=== PATIENT | male | born 1980 | race Caucasian/White ===

== ENCOUNTER 2018-01-07 08:40 | Day surgery (SDC) | payer OTHER ==
[~2018-01-07] VITALS: Ht 180.3 cm; Wt 97.1 kg
[2018-01-07] VITALS (10 sets, daily range): BP systolic 108–137; BP diastolic 83–97
--- NOTE | 2018-01-07 06:56 | Pre-Procedure Note/Attestation ---
Pre-Procedure Note/Attestation Complete Prior to Procedure Planned Procedure: left Procedure Narrative: left knee scope, medial meniscectomy and subchondroplasty Indications for Procedure Pre-Operative Diagnosis: left knee medial meniscus tear, insufficiency fracture Attestation I attest that I discussed the nature of the procedure; its benefits; risks and complications; and alternatives (and the risks and benefits of such alternatives ), prior to the procedure, with the patient (or the patient's legal sales representative sales manager). I attest that, if there was a reasonable possibility of needing a blood transfusion, the patient (or the patient's legal sales representative sales manager) was given the [facility] standardized written summary, pursuant to the Ashvin Ayad Blood Safety Act ([place] Health and Safety Code # 1645, as amended). I attest that I re-evaluated the patient just prior to the surgery and that there has been no change in the patient's H&P, except as documented below: none Maciel Manjarrez MD Jan 07, 2018 06:56
[~2018-01-07 08:40] MED LIST: ceFAZolin sod 1 GM in D5W 110 ML IVP ONE; celeBREX 200mg Cap **SURGERY PATIENTS ONLY ORAL ONE; oxyCONTIN 20mg tab ORAL ONE
[2018-01-07] MEDS ORDERED: Ropivacaine 5mg/ml Vial 30ml INJ ONE (09:10)
[2018-01-07] MEDS ORDERED: Midazolam 2mg/2ml Inj ONE ×3 (09:26→10:13)
[2018-01-07] MEDS ORDERED: Dexamethasone 4mg/ml vial ONE (09:27)
[2018-01-07] MEDS ORDERED: Propofol 200mg/20ml IV ONE (09:27)
[2018-01-07] MEDS ORDERED: Alfentanil 2ml Inj ONE (09:27)
[2018-01-07] MEDS ORDERED: Sodium Chloride 10ml vial INJ ONE (09:27)
[2018-01-07] MEDS ORDERED: Lidocaine 1% MPF 10mg/ml 5ml ONE (09:27)
[2018-01-07] MEDS ORDERED: D5 1/2NS 1,000 ML IV SCH (09:30)
[2018-01-07] MEDS ORDERED: Norco 5mg/325mg tab ORAL PRN ×2 (09:30→11:00)
[2018-01-07] MEDS ORDERED: Tylenol #3 tab (300mg/30mg) ORAL PRN (09:30)
--- NOTE | 2018-01-07 09:38 | Anethesia Preoperative Eval ---
Anesthesia Pre-op PMH/ROS General Date of Evaluation: Jan 07, 2018 Time of Evaluation: 09:59 Anesthesiologist: Abiel ASA Score: ASA 2 Mallampati Score Class I : Soft palate, uvula, fauces, pillars visible Class II: Soft palate, uvula, fauces visible Class III: Soft palate, base of uvula visible Class IV: Only hard plate visible Mallampati Classification: Class II Surgeon: Loki Diagnosis: L Knee Pain Surgical Procedure: L Knee Arthroscopy, Chondroplasty Anesthesia History: none Family History: no anesthesia problems Allergies: Coded Allergies: No Known Allergies (Unverified , 01/03/18) Medications: see eMAR Past Medical History Cardiovascular: Reports: other - DVT Other: obesity - BMI 32 PSxH Narrative: R Knee Arthroscopy Anesthesia Pre-op Phys. Exam Physician Exam Constitutional: NAD Neurologic: CN 2-12 intact Cardiovascular: RRR Respiratory: CTA Gastrointestinal: S/NT/ND Airway Exam Mallampati Score: Class II MO: full ROM: limited Teeth: intact Anesthesia Pre-op A/P Risk Assessment & Plan Assessment: ASA 2 Plan: GA, BIS Status Change Before Surgery: No Pre-Antibiotics Dru Grams Ancef IV Given Within 1 Hr of Incision: Yes Time Given: 10:21 Jett Beebe MD Jan 07, 2018 09:38
--- NOTE | 2018-01-07 09:40 | Immediate Post-Op Evaluation ---
Immediate Post-Op Evalulation Immediate Post-Op Evalulation Procedure: L Knee Arthroscopy, Chondroplasty Date of Evaluation: Jan 07, 2018 Time of Evaluation: 11:57 IV Fluids: 800 LR Blood Products: 0 Estimated Blood Loss: 15 Urinary Output: 0 Blood Pressure Systolic: 137 Blood Pressure Diastolic: 92 Pulse Rate: 84 Respiratory Rate: 16 O2 Sat by Pulse Oximetry: 100 Temperature (Fahrenheit): 97.2 Pain Score (1-10): 2 Nausea: No Vomiting: No Complications 0 Patient Status: awake, reacts, patent, none Hydration Status: adequate Dru Grams Ancef IV Given Within 1 Hr of Incision: Yes Time Given: 10:21 Jett Beebe MD Jan 07, 2018 09:39
--- NOTE | 2018-01-07 09:40 | 48 Hour Post Anesthesia Eval ---
Post Anesthesia Evaluation Procedure: L Knee Arthroscopy, Chondroplasty Date of Evaluation: Jan 07, 2018 Time of Evaluation: 13:58 Blood Pressure Systolic: 122 0: 74 Pulse Rate: 81 Respiratory Rate: 18 Temperature (Fahrenheit): 98.2 O2 Sat by Pulse Oximetry: 100 Airway: patent Nausea: No Vomiting: No Pain Intensity: 2 Hydration Status: adequate Cardiopulmonary Status: Stable Mental Status/LOC: patient returned to baseline Follow-up Care/Observations: 0 Post-Anesthesia Complications: 0 Follow-up care needed: ready to discharge Jett Beebe MD Jan 07, 2018 09:40
[2018-01-07] MEDS ORDERED: oxyCONTIN 20mg tab ORAL ONE (09:44)
[2018-01-07] MEDS ORDERED: celeBREX 200mg Cap **SURGERY PATIENTS ONLY ORAL ONE (09:44)
[2018-01-07] MEDS ORDERED: LR 1000ml ONE (10:00)
[2018-01-07] MEDS ORDERED: NS Irrig 4000ml IRRIG ONE ×2 (10:00→10:57)
[2018-01-07] MEDS ORDERED: NKM (10:12)
[2018-01-07] MEDS ORDERED: ePHEDrine 50mg/ml Inj ONE (10:23)
[2018-01-07] MEDS ORDERED: fentaNYL 100 mcg/2 mL IV ONE (10:57)
[2018-01-07] MEDS ORDERED: LR 1000ml 1,000 ML IVLG SCH (10:59)
[2018-01-07] MEDS ORDERED: Hydromorphone 0.5mg/0.5ml inj IVP PRN (11:00)
[2018-01-07] MEDS ORDERED: DiphenhydrAMINE 50mg/ml Inj IVP PRN (11:00)
[2018-01-07] MEDS ORDERED: LORazepam Inj 2mg/ml 1ml IV PRN (11:00)
[2018-01-07] MEDS ORDERED: fentaNYL 100 mcg/2 mL IV PRN (11:00)
[2018-01-07] MEDS ORDERED: Midazolam 2mg/2ml Inj IVP PRN (11:00)
[2018-01-07] MEDS ORDERED: Metoclopramide 10mg/2ml Inj IVP PRN (11:00)
[2018-01-07] MEDS ORDERED: HYDROcodone/Acetamin 7.5/325 tab ORAL PRN (11:00)
[2018-01-07] MEDS ORDERED: Ketorolac 30mg Inj IV PRN ×2 (11:00)
[2018-01-07] MEDS ORDERED: Acetaminophen (Non formulary) 100 ML IV ONE (11:00)
[2018-01-07] MEDS ORDERED: Atropine Inj 1mg/10ml Syr IV PRN (11:00)
[2018-01-07] MEDS ORDERED: oxyCODONE HCL/Acetaminophen 5/325mg ORAL PRN (11:00)
[2018-01-07] MEDS ORDERED: Labetalol 5mg/ml 20ml vial IV PRN (11:00)
[2018-01-07] MEDS ORDERED: Naloxone 0.4mg/ml Inj ONE (11:36)
--- NOTE | 2018-01-07 11:40 | Brief Operative Note ---
Immediate Post Operative Note Operative Note Chief Complaint: left knee pain Pre-op Diagnosis: left knee medial meniscus tear and insufficiency fracture Procedure: left knee scope, medial meniscectomy and subchondroplasty Post-op Diagnosis: same as pre-op Findings: consistent w/pre-op dx studies Surgeon: md elen Heel Dipper: paxton white Anesthesiologist: md alex Anesthesia: general Specimen: none Complications: none Condition: stable Fluids: ns Estimated Blood Loss: minimal Drains: none Implant(s) used?: Yes - biomet Farrah White Jan 07, 2018 11:40
--- NOTE | 2018-01-07 18:00 | Operative Note - Dictated ---
SURGERY DATE: 01/07/2018 PREOPERATIVE DIAGNOSES: 1. Left knee medial tibial plateau fracture. 2. Left knee subchondral cysts and edema over the medial tibial plateau. 3. Left knee medial meniscus tearing. POSTOPERATIVE DIAGNOSES: 1. Left knee tibial plateau fracture with subchondral cysts and edema. 2. Left knee posterior horn of medial meniscus tearing involving 20% of posterior horn of medial meniscus. 3. Left knee medial tibial plateau chondral lesion, grade 3/4, down to subchondral bone over the area of the tibial plateau fracture measuring 2 cm x 2 cm. 4. Left knee patellar chondral lesion, grade 3, with unstable chondral flap over the medial patellar facet measuring 1 x 1 cm. PROCEDURE: 1. Left knee arthroscopy and extensive intra-articular shaving. 2. Left knee partial medial meniscectomy involving 20% of posterior horn and body of medial meniscus. 3. Left knee patellofemoral chondroplasty. 4. Left knee arthroscopically assisted treatment of unichondral medial tibial plateau fracture with injection of 5 mL of calcium phosphate bone graft in the subchondral bone to enhance stability of the medial tibial plateau. SURGEON: Maciel Manjarrez M.D. GEOTHERMAL SHEET METAL WORKER: Farrah Kolb PA-C. African Studies Professor was present during the actual operative portion of the case and was important and essential part of the operation. During the operation, the vector control assistant held and operated the arthroscopic camera for visualization, assisted by manipulating the leg to help with visualization, and helped with essential parts of the repair process as necessary such as operating surgical instruments under surgeon supervision, suture management, and wound closures. ANESTHESIOLOGIST: Dr. Beebe. ANESTHESIA: LMA. TOURNIQUET TIME: 45 minutes. ESTIMATED BLOOD LOSS: Minimal. COMPLICATIONS: None. SURGICAL INDICATION: The patient is a 37-year-old male who sustained the above injury to his knee. The patient was treated non-operative initially, but this did not alleviate the patients symptoms. Therefore, after discussing all non-surgical and surgical options, and discussing all foreseeable risk and benefits of surgery, the patient opted for surgical treatment as described above. PATIENT POSITIONING: The patient was brought to the operating room table and placed supine. All pressure points were well padded. General anesthesia was induced and a well-padded tourniquet was placed on the thigh. The lateral post was placed and positioned to allow for opening of the medial compartment of the knee without placing pressure over the fibular head. The patients entire leg was prepped and draped in the usual sterile fashion. Time-out was performed and preop antibiotic was given and after exsanguinating the lower extremity, the tourniquet was inflated to 275 mmHg. EXAMINATION OF THE KNEE UNDER ANESTHESIA: Before prepping and draping the knee and while the patient was relaxed under general anesthesia, the knee was examined for ROM, and anterior and posterior, medial and lateral, posterolateral, and posteromedial instability. Pivot-shift testing was performed. There was no evidence of loss of motion or instability and the pivot shift testing was negative. PORTAL PLACEMENT: The lateral portal was placed with the knee flexed to 90 degrees at the level of inferior border of the patella in line with the lateral border of the patella. A 0.5-cm skin incision was made with an #11 blade, and using a blunt obturator, the capsule was gently penetrated. Sterile saline solution was then infused inside the knee with the aid of a pump set at 35 mmHg pressure. Under direct visualization, placement of the medial portal was preliminarily judged using a spinal needle, and it was subsequently established using the same technique as the lateral portal. Care was given not to injure the cutaneous branches of the medial saphenous nerve or the subcutaneous veins. DIAGNOSTIC ARTHROSCOPY: The suprapatellar patellar pouch was visualized. There was no evidence of scar tissue or loose fragments. The medial and lateral patellar facets and trochlear groove articular cartilage was visualized. There was chondral damage over the medial patella measuring 1 x 1 cm. 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 The medial plica shelf and the corresponding medial femoral condyle articular cartilage were visualized. There was no significantly thickening of the medial plica shelf and there were no kissing? lesion over the medial femoral condyle. The lateral gutter and the posterolateral corner of the knee were visualized. There were no loose bodies, and the popliteus tendon and other structures of the posterolateral corner of the knee were intact intra-articularly. At this point, the knee was placed in the figure of four position and the lateral compartment was entered. The lateral femoral condyle, lateral tibial plateau, and the anterior, body, and the posterior horn of the lateral meniscus were visualized and probed. The articular surfaces were intact and devoid of articular cartilage damage. The lateral meniscus was completely intact both on its undersurface and on the top. The knee was then placed at 90 degree and the ACL and PCL were visualized and probed. The ACL was completely intact on visualization and probing, and it had excellent tension. The PCL was completely intact on visualization and probing and it had excellent tension. The medial compartment was then entered and the medial femoral condyle, medial tibial plateau, and the anterior, body, and the posterior horn of the medial meniscus were visualized and probed. There was evidence of medial tibial plateau fracture which was subacute and old. There was displacement of about 4 mm that could be appreciated. This had gone onto healing although there was evidence of subchondral cyst formation on the MRI and there was extensive chondral damage and chondral flaps over that area. The area of the defect appeared to be 2 x 2 cm over the central weightbearing zone of the medial femoral condyle. There was a tear of the posterior horn of the medial meniscus involving 20% of posterior horn and body of the medial meniscus. The medial gutter was visualized. There was no evidence of defect or loose fragments. The scope was then brought back to the patella femoral compartment. OPERATIVE ARTHROSCOPY: At this point, all loose debris and fragments were removed with the use of suction motorized shaver. Specific attention was given to assure all visible loose fragments were irrigated out of the knee joint with pump inflow and cannula outflow system. The frayed articular cartilage of the undersurface of the patella and the trochlear groove were debrided using a motorized shaver. Suction was used to pull in the loose fragments and flaps of the cartilage and to minimize damage to the intact and well-attached portion of the cartilage. This allowed for a smooth surface for the articular cartilage gliding. At this point, attention was given to the medial meniscus. Using combination of baskets and tricia, the torn portion of the medial meniscus was removed. Attention was given to remove all displaced and unstable portion of the medial meniscus while maintaining as much of the functional portion of the meniscus as possible. Approximately, 20% of the posterior horn and body of the medial meniscus was removed in this fashion. The transition between the meniscectomy portion and intact portion of the meniscus was smoothed out with combination of small baskets and tricia. Excellent transition zone was obtained in this fashion. Care was given to the area of cartilage damage in the medial compartment. The frayed and loose fragments of articular cartilage were debrided using a motorized shaver. Suction was used to pull in the loose fragments and flaps of the cartilage and to minimize damage to the intact and well-attached portion of the cartilage. This allowed for smooth surfaces for the articular cartilage. At this point, care was given to the medial tibial plateau fracture and subchondral bone edema and trabecular microfracture could be appreciated and the cystic formation could be appreciated on the MRI. At this point, using fluoroscopy image intensifier and under arthroscopic visualization, a subchondroplasty needle was drilled in from the medial side approximately 7 mm distal to the joint line in the center portion on sagittal view on the medial tibial plateau. This location was predetermined based on the MRI findings and the location of the cyst and subchondral bony edema and microfracture that could be appreciated on the medial tibial plateau. Once this subchondroplasty needle was advanced and visualized on AP and lateral and location, it was ensured that it was dense facet 3 fenestration so that all fenestration points are interosseous. Once this was ensured on AP and lateral, the calcium phosphate was mixed and total of 5 mL of calcium phosphate was injected in the medial tibial plateau while rotating the needle to ensure that the entire calcium phosphate was injected in the surrounding interosseous space of the medial tibial plateau. The calcium phosphate could be visualized under fluoroscopy that would create an increased radiodensity within the medial tibial plateau. Once this was completed, the chondroplasty needle was left in for 8 minutes for the calcium phosphate to harden. Intraoperatively with arthroscopy, the area of the medial tibial plateau was visualized and there was slight extravasation of the calcium phosphate that could be visualized. This was approximately less than 0.2 milliliters. This was shaved off without any complication. There was no residual calcium phosphate that could be visualized in that joint. All three compartments of the joint were then visualized via scope and there was no calcium phosphate remaining and the knee was then lavaged using 1 liter of saline. At this point, the chondroplasty needle was then removed without any complication after calcium phosphate was hardened. The area of the needle was injected with 0.5% Marcaine with epinephrine for postoperative anesthesia. Steri-Strips were applied. CONDITION AT DISCHARGE FROM OPERATING ROOM: The knee was irrigated with copious amount of normal saline at the end of the procedure. The scope was removed and the water was drained. The skin edges were re-approximated and sterile dressing was applied. All lap count and instrument counts were correct. The patient tolerated the procedure well without complications and was taken to the recovery room in stable conditions. Maciel Manjarrez M.D. DR: Maximus JOB#: [id number] CC:
--- NOTE | 2018-01-08 16:37 | Diagnostic Imaging Report ---
Indication: Intraoperative images, pain Technique: Intraoperative images Comparison: none Findings: Intraoperative images demonstrate placement of a surgical tool into the medial left proximal tibia Impression: Intraoperative imaging, as described
== END 2018-01-07 13:20 | disposition home or self-care (01) ==
LOC: SUR 08:40
DX: S82.142A Displaced bicondylar fracture of left tibia, initial encounter for closed fracture (principal); R60.0 Localized edema; S83.242A Other tear of medial meniscus, current injury, left knee, initial encounter; M24.10 Other articular cartilage disorders, unspecified site; M23.92 Unspecified internal derangement of left knee; X58.XXXA Exposure to other specified factors, initial encounter; Z80.8 Family history of malignant neoplasm of other organs or systems; Z82.49 Family history of ischemic heart disease and other diseases of the circulatory system; Z86.718 Personal history of other venous thrombosis and embolism
CPT/HCPCS: 29855; 29877; 29881; 73560; 76000; J0690; J1100; J2250; J2310; J2405; J2704; J2795; J3010; J3490; J7120